=== PATIENT | male | born 1975 | race Caucasian/White ===

== ENCOUNTER → 2020-09-23 | Outpatient (CLI) | payer OTHER | LOC: KOH-I 09-22 16:15 → MRI 11:13 | DX: M54.2 Cervicalgia (principal); M50.31 Other cervical disc degeneration, high cervical region; M48.02 Spinal stenosis, cervical region | CPT/HCPCS: 72141 ==

== ENCOUNTER → 2021-08-03 | Outpatient (CLI) | payer OTHER | LOC: EMI 10:46 | DX: G50.0 Trigeminal neuralgia (principal); J32.0 Chronic maxillary sinusitis | CPT/HCPCS: 70553; A9577 ==